=== PATIENT | female | born 1950 | race Caucasian/White ===

== ENCOUNTER 2017-02-04 15:30 | Inpatient (IN) | payer OTHER ==
[~2017-02-04] VITALS: Ht 147.3 cm; Wt 41.4 kg
[~2017-02-04 15:30] MED LIST: BENAZEPRIL HYDR40 M1 PO; CLINDAMYCIN HC300 MG PO; CLONIDINE HYDR0.3 M1 PO; HYDRALAZINE HCL50 MG PO; LABETALOL HCL200 MG PO; LABETALOL HYDR300 MG PO; LEVAQUIN750 MG PO; LOTENSIN40 MG PO; PROCARDIA XL90 MG PO; RENVELA800 M1 PO; SENSIPAR30 M1 PO
[2017-02-04 15:40] VITALS: Ht 147.3 cm; Wt 41.4 kg
[2017-02-04 17:08] LABS: BASOPHIL % 0.4 % (0-2); PLATELET COUNT 189 x10^3mcL (130-400)
[2017-02-04 17:09] LABS: RED CELL DISTRIBUTION WIDTH 18.3 % (11.5-14.5)
[2017-02-04 17:20] LABS: ALBUMIN 3.1 g/dL (3.4-5.0); BILIRUBIN TOTAL 0.5 mg/dL (0.20-1.00); CALCIUM 9.2 mg/dL (8.5-10.1); CARBON DIOXIDE 30.1 mmol/L (21-32); CREATININE SERUM 1.9 mg/dL (0.6-1.0); TOTAL PROTEIN, SERUM 6.8 g/dL (6.4-8.2)
[2017-02-04 17:23] LABS: POTASSIUM SERUM 2.9 mmol/L (3.5-5.1)
[2017-02-04 17:43] VITALS: BP 182/81
[2017-02-04 17:52] LABS: T3 TOTAL 0.78 ng/mL
[2017-02-04 17:56] LABS: MAGNESIUM 2.1 mg/dL (1.8-2.4); PHOSPHOROUS 3.6 mg/dL (2.5-4.9)
[2017-02-04 17:59] LABS: CHOLESTEROL/HDL RATIO 2.6
[2017-02-04 18:07] VITALS: BP 182/81
[2017-02-04 18:08] LABS: T4(THYROXINE) 8.5 ug/dL (4.7-13.3)
[2017-02-04 18:10] LABS: FREE T4 1.25 ng/dL (0.76-1.46); FREE THYROXINE INDEX 3.1 ug/dL (1.4-4.5); T4(THYROXINE) 8.8 ug/dL (4.7-13.3)
[2017-02-04 21:39] VITALS: BP 145/64
[2017-02-04 23:15] VITALS: BP 169/82
[2017-02-05] VITALS (9 sets, daily range): BP systolic 137–231; BP diastolic 38–98
[2017-02-05 07:48] LABS: BASOPHIL % 0.3 % (0-2); PLATELET COUNT 169 x10^3mcL (130-400)
[2017-02-05 07:52] LABS: RED CELL DISTRIBUTION WIDTH 18.6 % (11.5-14.5)
[2017-02-05 08:04] LABS: CALCIUM 10.7 mg/dL (8.5-10.1); CARBON DIOXIDE 27.2 mmol/L (21-32); CREATININE SERUM 3.1 mg/dL (0.6-1.0); MAGNESIUM 2.4 mg/dL (1.8-2.4); PHOSPHOROUS 5.1 mg/dL (2.5-4.9); POTASSIUM SERUM 5.4 mmol/L (3.5-5.1)
[2017-02-05 19:02] LABS: RED BLOOD CELLS 2.5 M/mm3 (4.10-5.10)
[2017-02-05 19:11] LABS: CALCIUM 10.1 mg/dL (8.5-10.1); CARBON DIOXIDE 26.3 mmol/L (21-32)
[2017-02-05 19:15] LABS: CREATININE SERUM 4.2 mg/dL (0.6-1.0)
[2017-02-05 20:47] LABS: IRON 76 ug/dL (50-170)
[2017-02-05 20:50] LABS: TOTAL IRON BINDING CAPACITY 202 ug/dL (250-450)
[2017-02-06 05:42] VITALS: BP 132/57
[2017-02-06 07:22] LABS: BASOPHIL % 0.7 % (0-2); PLATELET COUNT 164 x10^3mcL (130-400)
[2017-02-06 07:56] LABS: CALCIUM 9.9 mg/dL (8.5-10.1); CARBON DIOXIDE 24.4 mmol/L (21-32); MAGNESIUM 2.5 mg/dL (1.8-2.4); PHOSPHOROUS 5.9 mg/dL (2.5-4.9); POTASSIUM SERUM 4.9 mmol/L (3.5-5.1)
[2017-02-06 08:26] LABS: CREATININE SERUM 5.2 mg/dL (0.6-1.0)
[2017-02-06 09:37] VITALS: BP 199/94
[2017-02-06 14:30] VITALS: BP 139/70; BP 187/89
[2017-02-06 16:36] VITALS: BP 134/63
[2017-02-06 20:55] VITALS: BP 106/41
[2017-02-06 21:44] VITALS: BP 122/55
[2017-02-07 05:48] VITALS: BP 148/73
[2017-02-07 08:20] VITALS: BP 177/46
[2017-02-07 10:12] VITALS: BP 177/46
== END 2017-02-07 11:58 | disposition home or self-care (01) | DRG 291 ==
LOC: ED 15:30 → DU 16:24
PROVIDERS: Emergency Medicine; Family Medicine
DX: I13.2 Hypertensive heart and chronic kidney disease with heart failure and with stage 5 chronic kidney disease, or end stage renal disease (principal); N18.6 End stage renal disease; I50.43 Acute on chronic combined systolic (congestive) and diastolic (congestive) heart failure; N17.0 Acute kidney failure with tubular necrosis; J96.00 Acute respiratory failure, unspecified whether with hypoxia or hypercapnia; I69.354 Hemiplegia and hemiparesis following cerebral infarction affecting left non-dominant side; Z68.1 Body mass index [BMI] 19.9 or less, adult; E44.0 Moderate protein-calorie malnutrition; J44.9 Chronic obstructive pulmonary disease, unspecified; E87.5 Hyperkalemia; D63.1 Anemia in chronic kidney disease; Z99.2 Dependence on renal dialysis
CPT/HCPCS: 36600; 83880; 84439; 87804; 94150; A4719; J0360; J1644; J3480; J7030; J7620

== ENCOUNTER 2017-03-19 04:28 | Inpatient (IN) | payer OTHER ==
[~2017-03-19] VITALS: Ht 147.3 cm; Wt 33.3 kg
[2017-03-19] MEDS ORDERED: RENVELA800 M1 PO (06:24)
[2017-03-19 06:30] LABS: BASOPHIL % 0.2 % (0-2); PLATELET COUNT 136 x10^3mcL (130-400)
[2017-03-19 07:12] LABS: CREATININE SERUM 2.9 mg/dL (0.6-1.0); POTASSIUM SERUM 3.7 mmol/L (3.5-5.1)
[2017-03-19 07:29] LABS: ALBUMIN 2.9 g/dL (3.4-5.0); BILIRUBIN TOTAL 0.59 mg/dL (0.20-1.00); CALCIUM 10.1 mg/dL (8.5-10.1); TOTAL PROTEIN, SERUM 6.3 g/dL (6.4-8.2)
[2017-03-19 08:15] VITALS: BP 140/59
[2017-03-19 09:34] VITALS: BP 140/59
[2017-03-19 10:50] LABS: CHOLESTEROL/HDL RATIO 2.2
[2017-03-19 11:00] LABS: T3 TOTAL 1.05 ng/mL
[2017-03-19 11:07] LABS: FREE T4 1.12 ng/dL (0.76-1.46); FREE THYROXINE INDEX 3.1 ug/dL (1.4-4.5); T4(THYROXINE) 8.5 ug/dL (4.7-13.3)
[2017-03-19 13:30] VITALS: BP 147/70
== END 2017-03-19 14:46 | disposition home or self-care (01) | DRG 205 ==
LOC: ED 04:28 → DU 06:04
PROVIDERS: Emergency Medicine; Family Medicine
DX: M94.0 Chondrocostal junction syndrome [Tietze] (principal); I50.43 Acute on chronic combined systolic (congestive) and diastolic (congestive) heart failure; E43 Unspecified severe protein-calorie malnutrition; N18.6 End stage renal disease; I13.2 Hypertensive heart and chronic kidney disease with heart failure and with stage 5 chronic kidney disease, or end stage renal disease; Z68.1 Body mass index [BMI] 19.9 or less, adult; I16.0 Hypertensive urgency; E11.22 Type 2 diabetes mellitus with diabetic chronic kidney disease; D63.8 Anemia in other chronic diseases classified elsewhere; Z99.2 Dependence on renal dialysis
CPT/HCPCS: 83880; 84439; Q0092

== ENCOUNTER 2017-03-27 10:49 | Inpatient (IN) | payer OTHER ==
[2017-03-27] VITALS (8 sets, daily range): BP systolic 103–223; BP diastolic 47–105
[~2017-03-27] VITALS: Ht 147.3 cm; Wt 44.6 kg
[2017-03-27 11:31] LABS: BASOPHIL % 1.1 % (0-2); PLATELET COUNT 150 x10^3mcL (130-400)
[2017-03-27 11:35] LABS: RED CELL DISTRIBUTION WIDTH 18.4 % (11.5-14.5)
[2017-03-27 11:46] LABS: ALBUMIN 3.4 g/dL (3.4-5.0); BILIRUBIN TOTAL 0.7 mg/dL (0.20-1.00); CALCIUM 9.7 mg/dL (8.5-10.1); CARBON DIOXIDE 25.8 mmol/L (21-32); TOTAL PROTEIN, SERUM 7.2 g/dL (6.4-8.2)
[2017-03-27 11:47] LABS: CK-MB 1.9 ng/mL (0-3.6)
[2017-03-27 11:52] LABS: CREATININE SERUM 6.7 mg/dL (0.6-1.0); POTASSIUM SERUM 5.9 mmol/L (3.5-5.1)
[2017-03-27] MEDS ORDERED: SPIRIVA18 MC1 INH (12:13)
[2017-03-27] MEDS ORDERED: PROAIR HFA8.5 GM (12:14)
[2017-03-27 13:57] LABS: MAGNESIUM 2.4 mg/dL (1.8-2.4); PHOSPHOROUS 5.7 mg/dL (2.5-4.9)
[2017-03-27 14:01] LABS: CHOLESTEROL/HDL RATIO 2.4
[2017-03-27 14:07] LABS: FREE T4 1.24 ng/dL (0.76-1.46); FREE THYROXINE INDEX 3.2 ug/dL (1.4-4.5); T3 TOTAL 1.04 ng/mL; T4(THYROXINE) 8.9 ug/dL (4.7-13.3)
[2017-03-27 20:39] LABS: CALCIUM 9.5 mg/dL (8.5-10.1); CREATININE SERUM 2.5 mg/dL (0.6-1.0)
[2017-03-27 20:51] LABS: POTASSIUM SERUM 2.4 mmol/L (3.5-5.1)
[2017-03-28 04:31] VITALS: BP 130/40
[2017-03-28 09:17] LABS: BASOPHIL % 0.2 % (0-2); PLATELET COUNT 142 x10^3mcL (130-400)
[2017-03-28 09:33] LABS: RED CELL DISTRIBUTION WIDTH 18.3 % (11.5-14.5)
[2017-03-28 09:39] LABS: CALCIUM 10.2 mg/dL (8.5-10.1); CARBON DIOXIDE 27.3 mmol/L (21-32); MAGNESIUM 1.9 mg/dL (1.8-2.4); PHOSPHOROUS 5.5 mg/dL (2.5-4.9); POTASSIUM SERUM 4.3 mmol/L (3.5-5.1)
[2017-03-28 09:50] VITALS: BP 159/33
[2017-03-28 11:42] VITALS: BP 145/59
[2017-03-28 14:30] VITALS: BP 167/76
[2017-03-28 16:35] LABS: CALCIUM 9.3 mg/dL (8.5-10.1); POTASSIUM SERUM 5.3 mmol/L (3.5-5.1)
[2017-03-28 16:39] LABS: CREATININE SERUM 4.9 mg/dL (0.6-1.0)
[2017-03-28 18:05] VITALS: BP 103/37
[2017-03-28 20:06] VITALS: Ht 147.3 cm; Wt 44.6 kg
[2017-03-28 21:34] VITALS: BP 136/49
[2017-03-29 04:09] VITALS: BP 194/53
[2017-03-29 05:13] VITALS: BP 195/62
[2017-03-29 06:11] VITALS: BP 148/49
[2017-03-29 06:21] LABS: PLATELET COUNT 131 x10^3mcL (130-400)
[2017-03-29 06:41] LABS: CALCIUM 9.2 mg/dL (8.5-10.1); CARBON DIOXIDE 24.6 mmol/L (21-32); PHOSPHOROUS 7.3 mg/dL (2.5-4.9); POTASSIUM SERUM 4.7 mmol/L (3.5-5.1)
[2017-03-29 06:44] LABS: CREATININE SERUM 5.9 mg/dL (0.6-1.0)
[2017-03-29 06:51] LABS: BASOPHIL % 0 % (0-2); RED CELL DISTRIBUTION WIDTH 18.1 % (11.5-14.5)
[2017-03-29 08:58] VITALS: BP 150/82
[2017-03-29] MEDS ORDERED: LEVAQUIN750 MG PO (10:08)
[2017-03-29] MEDS ORDERED: LAC PO (10:09)
[2017-03-29] MEDS ORDERED: CLINDAMYCIN HC300 MG PO (10:09)
[2017-03-29 12:38] VITALS: BP 150/82
== END 2017-03-29 13:55 | disposition home or self-care (01) | DRG 177 ==
LOC: ED 10:49 → DU 12:50
PROVIDERS: Emergency Medicine; Family Medicine; Family Medicine Sports Medicine; Internal Medicine Nephrology
DX: J69.0 Pneumonitis due to inhalation of food and vomit (principal); J96.00 Acute respiratory failure, unspecified whether with hypoxia or hypercapnia; I50.43 Acute on chronic combined systolic (congestive) and diastolic (congestive) heart failure; N18.6 End stage renal disease; N17.0 Acute kidney failure with tubular necrosis; I13.2 Hypertensive heart and chronic kidney disease with heart failure and with stage 5 chronic kidney disease, or end stage renal disease; I35.0 Nonrheumatic aortic (valve) stenosis; I34.0 Nonrheumatic mitral (valve) insufficiency; E83.39 Other disorders of phosphorus metabolism; Z99.2 Dependence on renal dialysis
CPT/HCPCS: 36600; 83880; 84439; J1956; J3480; J3490; J7030; J7040; J7613; J7620; J7644; Q0092

== ENCOUNTER 2017-11-12 14:59 | Emergency (ER) | payer OTHER ==
[~2017-11-12 14:59] MED LIST changes: +LAC PO; +PROAIR HFA8.5 GM; +SPIRIVA18 MC1 INH
[2017-11-12 15:03] VITALS: Ht 144.8 cm
[2017-11-12 15:42] VITALS: BP 124/95
== END 2017-11-12 15:42 | disposition home or self-care (01) ==
LOC: ED 14:59
DX: L97.929 Non-pressure chronic ulcer of unspecified part of left lower leg with unspecified severity (principal); M79.605 Pain in left leg; I12.9 Hypertensive chronic kidney disease with stage 1 through stage 4 chronic kidney disease, or unspecified chronic kidney disease; J44.9 Chronic obstructive pulmonary disease, unspecified; N18.9 Chronic kidney disease, unspecified; Z88.0 Allergy status to penicillin; Z88.5 Allergy status to narcotic agent; Z88.6 Allergy status to analgesic agent; Z88.8 Allergy status to other drugs, medicaments and biological substances; Z98.890 Other specified postprocedural states

== ENCOUNTER 2018-01-01 19:22 | Inpatient (IN) | payer OTHER ==
[~2018-01-01] VITALS: Ht 144.8 cm; Wt 38.0 kg
[2018-01-01 19:34] VITALS: Ht 144.8 cm; Wt 38.0 kg
[2018-01-01 20:19] LABS: BASOPHIL % 0.3 % (0-2); PLATELET COUNT 185 x10^3mcL (130-400)
[2018-01-01 20:22] LABS: RED CELL DISTRIBUTION WIDTH 17.6 % (11.5-14.5)
[2018-01-01 20:29] LABS: CALCIUM 9.6 mg/dL (8.5-10.1); CARBON DIOXIDE 35.8 mmol/L (21-32); CREATININE SERUM 2.7 mg/dL (0.6-1.0); POTASSIUM SERUM 3.3 mmol/L (3.5-5.1)
[2018-01-01 20:34] LABS: BILIRUBIN TOTAL 0.54 mg/dL (0.20-1.00); TOTAL PROTEIN, SERUM 7.3 g/dL (6.4-8.2)
[2018-01-01 20:37] LABS: ALBUMIN 2.9 g/dL (3.4-5.0)
[2018-01-01] MEDS ORDERED: CLONIDINE HYDR0.3 M1 PO (21:41)
[2018-01-01] MEDS ORDERED: NIFEDIPINE30 MG PO (21:41)
[2018-01-01] MEDS ORDERED: NIFEDIPINE ER90 M2 PO (21:42)
[2018-01-01] MEDS ORDERED: HYDRALAZINE HCL25 MG PO (21:43)
[2018-01-01 23:07] LABS: CHOLESTEROL/HDL RATIO 2.7; MAGNESIUM 2.2 mg/dL (1.8-2.4); PHOSPHOROUS 4.8 mg/dL (2.5-4.9)
[2018-01-01 23:42] VITALS: BP 114/71
[2018-01-02 03:46] LABS: BASOPHIL % 0.4 % (0-2); PLATELET COUNT 197 x10^3mcL (130-400)
[2018-01-02 03:51] LABS: RED CELL DISTRIBUTION WIDTH 18.1 % (11.5-14.5)
[2018-01-02 03:58] LABS: CALCIUM 9.5 mg/dL (8.5-10.1); CREATININE SERUM 3.2 mg/dL (0.6-1.0); MAGNESIUM 2.2 mg/dL (1.8-2.4); PHOSPHOROUS 5.4 mg/dL (2.5-4.9); POTASSIUM SERUM 3.6 mmol/L (3.5-5.1)
[2018-01-02 05:31] VITALS: BP 125/76
[2018-01-02 08:28] VITALS: BP 125/82
[2018-01-02 12:32] VITALS: BP 149/88
[2018-01-02 17:08] VITALS: BP 126/76
[2018-01-02 20:57] VITALS: BP 134/86
[2018-01-03] VITALS (10 sets, daily range): BP systolic 106–235; BP diastolic 68–170
[2018-01-03 04:04] LABS: BASOPHIL % 0.3 % (0-2); PLATELET COUNT 247 x10^3mcL (130-400)
[2018-01-03 04:05] LABS: RED CELL DISTRIBUTION WIDTH 18.3 % (11.5-14.5)
[2018-01-03 04:15] LABS: CALCIUM 9.8 mg/dL (8.5-10.1); PHOSPHOROUS 6.9 mg/dL (2.5-4.9); POTASSIUM SERUM 4.2 mmol/L (3.5-5.1)
[2018-01-03 04:16] LABS: CREATININE SERUM 5.1 mg/dL (0.6-1.0)
[2018-01-04 05:12] VITALS: BP 104/68
[2018-01-04 06:17] LABS: BASOPHIL % 0.2 % (0-2); PLATELET COUNT 191 x10^3mcL (130-400)
[2018-01-04 06:40] LABS: CALCIUM 9.7 mg/dL (8.5-10.1); CARBON DIOXIDE 29.9 mmol/L (21-32); MAGNESIUM 2.4 mg/dL (1.8-2.4); PHOSPHOROUS 6.5 mg/dL (2.5-4.9); POTASSIUM SERUM 4.3 mmol/L (3.5-5.1)
[2018-01-04 06:45] LABS: CREATININE SERUM 6.9 mg/dL (0.6-1.0)
[2018-01-04 07:18] LABS: RED CELL DISTRIBUTION WIDTH 17.7 % (11.5-14.5)
[2018-01-04 08:10] VITALS: BP 115/78
[2018-01-04 11:45] VITALS: BP 130/76
[2018-01-04 16:05] VITALS: BP 134/84
[2018-01-04 21:29] VITALS: BP 146/79
[2018-01-05 05:14] VITALS: BP 125/62
[2018-01-05 08:46] LABS: BASOPHIL % 0.1 % (0-2); PLATELET COUNT 178 x10^3mcL (130-400)
[2018-01-05 08:48] LABS: RED CELL DISTRIBUTION WIDTH 17.3 % (11.5-14.5)
[2018-01-05 08:53] LABS: CALCIUM 10.2 mg/dL (8.5-10.1); CARBON DIOXIDE 28.4 mmol/L (21-32); MAGNESIUM 2.1 mg/dL (1.8-2.4); PHOSPHOROUS 5.8 mg/dL (2.5-4.9); POTASSIUM SERUM 3.8 mmol/L (3.5-5.1)
[2018-01-05 08:57] LABS: CREATININE SERUM 4.6 mg/dL (0.6-1.0)
[2018-01-05 16:06] VITALS: BP 153/106
[2018-01-05 17:19] VITALS: BP 158/95
[2018-01-05 22:51] VITALS: BP 151/100
[2018-01-06 05:24] VITALS: BP 123/56
[2018-01-06 06:50] LABS: BASOPHIL % 0.5 % (0-2); PLATELET COUNT 175 x10^3mcL (130-400)
[2018-01-06 06:55] LABS: RED CELL DISTRIBUTION WIDTH 17.1 % (11.5-14.5)
[2018-01-06 07:19] LABS: CALCIUM 9.9 mg/dL (8.5-10.1); CARBON DIOXIDE 29.9 mmol/L (21-32); POTASSIUM SERUM 4.9 mmol/L (3.5-5.1)
[2018-01-06 07:26] LABS: CREATININE SERUM 6.5 mg/dL (0.6-1.0)
[2018-01-06 08:45] VITALS: BP 126/72
[2018-01-06 10:11] VITALS: BP 126/72
[2018-01-06 13:45] VITALS: BP 157/70
[2018-01-06 17:00] VITALS: BP 138/95
[2018-01-06 21:18] VITALS: BP 125/60
[2018-01-07 05:32] VITALS: BP 154/86
[2018-01-07 07:04] VITALS: BP 139/99
[2018-01-07 08:24] VITALS: BP 146/93
[2018-01-07] MEDS ORDERED: HYDRALAZINE HCL25 MG PO (13:11)
[2018-01-07] MEDS ORDERED: CAT0.1 PO (13:12)
[2018-01-07 14:00] VITALS: BP 143/80
[2018-01-07 14:12] VITALS: BP 146/93
== END 2018-01-07 17:56 | disposition left against medical advice (07) | DRG 280 ==
LOC: ED 19:22 → DU 22:18 → ED 22:58 → DU 23:07
PROVIDERS: Emergency Medicine; Family Medicine; General Practice
DX: I21.A1 Myocardial infarction type 2 (principal); N17.0 Acute kidney failure with tubular necrosis; N18.6 End stage renal disease; I50.43 Acute on chronic combined systolic (congestive) and diastolic (congestive) heart failure; J96.21 Acute and chronic respiratory failure with hypoxia; E43 Unspecified severe protein-calorie malnutrition; I13.2 Hypertensive heart and chronic kidney disease with heart failure and with stage 5 chronic kidney disease, or end stage renal disease; E87.1 Hypo-osmolality and hyponatremia; L97.929 Non-pressure chronic ulcer of unspecified part of left lower leg with unspecified severity; L97.919 Non-pressure chronic ulcer of unspecified part of right lower leg with unspecified severity; Z68.1 Body mass index [BMI] 19.9 or less, adult; E87.6 Hypokalemia; E83.39 Other disorders of phosphorus metabolism; I25.10 Atherosclerotic heart disease of native coronary artery without angina pectoris; J44.9 Chronic obstructive pulmonary disease, unspecified; D53.9 Nutritional anemia, unspecified; Z99.2 Dependence on renal dialysis; Z99.81 Dependence on supplemental oxygen
CPT/HCPCS: 36600; 82962; 83880; A9500; J0360; J1644; J1940; J2270; J2405; J2785; J7030; J7620; Q0092; Q0163

== ENCOUNTER 2018-01-18 21:53 | Inpatient (IN) | payer OTHER ==
[~2018-01-18] VITALS: Ht 144.8 cm; Wt 36.3 kg
[~2018-01-18 21:53] MED LIST changes: +CAT0.1 PO; +HYDRALAZINE HCL25 MG PO; +NIFEDIPINE ER90 M2 PO; +NIFEDIPINE30 MG PO
[2018-01-18 22:30] LABS: PLATELET COUNT 261 x10^3mcL (130-400)
[2018-01-18 22:32] LABS: BASOPHIL % 0 % (0-2); RED CELL DISTRIBUTION WIDTH 16.6 % (11.5-14.5)
[2018-01-18 22:53] LABS: CALCIUM 10.3 mg/dL (8.5-10.1); CARBON DIOXIDE 35.1 mmol/L (21-32); CREATININE SERUM 2.7 mg/dL (0.6-1.0); POTASSIUM SERUM 4.2 mmol/L (3.5-5.1)
[2018-01-18 22:58] LABS: ALBUMIN 3.4 g/dL (3.4-5.0); BILIRUBIN TOTAL 0.7 mg/dL (0.20-1.00)
[2018-01-18 23:04] LABS: TOTAL PROTEIN, SERUM 8.3 g/dL (6.4-8.2)
[2018-01-18 23:10] LABS: CK-MB 0.7 ng/mL (0-3.6)
[2018-01-19] VITALS (7 sets, daily range): BP systolic 95–148; BP diastolic 51–97
[2018-01-19] MEDS ORDERED: HYDRALAZINE10 MG PO (00:17)
[2018-01-19] MEDS ORDERED: CLONIDINE HYDR0.3 M1 PO (00:17)
[2018-01-19] MEDS ORDERED: NIFEDIPINE20 MG PO (00:18)
[2018-01-19 00:43] LABS: MAGNESIUM 1.9 mg/dL (1.8-2.4); PHOSPHOROUS 4.2 mg/dL (2.5-4.9)
[2018-01-19 06:52] LABS: PLATELET COUNT 208 x10^3mcL (130-400)
[2018-01-19 06:54] LABS: BASOPHIL % 0 % (0-2); RED CELL DISTRIBUTION WIDTH 17.4 % (11.5-14.5)
[2018-01-19 07:12] LABS: CARBON DIOXIDE 33.3 mmol/L (21-32); CREATININE SERUM 3.2 mg/dL (0.6-1.0); POTASSIUM SERUM 4.5 mmol/L (3.5-5.1)
[2018-01-20] VITALS (7 sets, daily range): BP systolic 100–147; BP diastolic 45–92
[2018-01-20 12:36] LABS: BASOPHIL % 0.7 % (0-2); PLATELET COUNT 222 x10^3mcL (130-400)
[2018-01-20 12:48] LABS: RED CELL DISTRIBUTION WIDTH 17.2 % (11.5-14.5)
[2018-01-20 13:59] LABS: CALCIUM 9.3 mg/dL (8.5-10.1); CARBON DIOXIDE 30.2 mmol/L (21-32); CREATININE SERUM 2.9 mg/dL (0.6-1.0); MAGNESIUM 1.7 mg/dL (1.8-2.4); PHOSPHOROUS 3.2 mg/dL (2.5-4.9); POTASSIUM SERUM 3.5 mmol/L (3.5-5.1)
[2018-01-20 14:24] LABS: IRON 67 ug/dL (50-170)
[2018-01-20 14:28] LABS: TOTAL IRON BINDING CAPACITY 159 ug/dL (250-450)
[2018-01-21 04:49] VITALS: BP 121/51
[2018-01-21 09:48] VITALS: BP 108/49
[2018-01-21 11:37] VITALS: BP 108/49
[2018-01-21 11:40] VITALS: BP 108/49
[2018-01-21 13:46] VITALS: BP 148/64
== END 2018-01-21 14:15 | disposition home or self-care (01) | DRG 280 ==
LOC: ED 21:53 → DU 23:48
PROVIDERS: Emergency Medicine; Family Medicine; General Practice; Internal Medicine Nephrology
DX: I21.A1 Myocardial infarction type 2 (principal); I50.43 Acute on chronic combined systolic (congestive) and diastolic (congestive) heart failure; J96.01 Acute respiratory failure with hypoxia; J18.9 Pneumonia, unspecified organism; N18.6 End stage renal disease; N17.0 Acute kidney failure with tubular necrosis; I13.2 Hypertensive heart and chronic kidney disease with heart failure and with stage 5 chronic kidney disease, or end stage renal disease; L97.821 Non-pressure chronic ulcer of other part of left lower leg limited to breakdown of skin; L97.811 Non-pressure chronic ulcer of other part of right lower leg limited to breakdown of skin; Z68.1 Body mass index [BMI] 19.9 or less, adult; R64 Cachexia; J44.9 Chronic obstructive pulmonary disease, unspecified; I27.20 Pulmonary hypertension, unspecified; I25.10 Atherosclerotic heart disease of native coronary artery without angina pectoris; I08.1 Rheumatic disorders of both mitral and tricuspid valves; Z91.11 Patient's noncompliance with dietary regimen; Z99.2 Dependence on renal dialysis
CPT/HCPCS: 36600; 83880; 87804; 94150; J1956; J2920; J3490; J7030; J7040; J7620; Q0092; Q0163

== ENCOUNTER 2018-02-14 22:07 | Inpatient (IN) | payer OTHER ==
[~2018-02-14] VITALS: Ht 144.8 cm; Wt 37.6 kg
[~2018-02-14 22:07] MED LIST changes: +HYDRALAZINE10 MG PO; +NIFEDIPINE20 MG PO
[2018-02-14 22:40] LABS: BASOPHIL % 0.1 % (0-2); PLATELET COUNT 274 x10^3mcL (130-400)
[2018-02-14 22:45] LABS: RED CELL DISTRIBUTION WIDTH 17.1 % (11.5-14.5)
[2018-02-14 22:54] LABS: BILIRUBIN TOTAL 0.43 mg/dL (0.20-1.00); CALCIUM 9.6 mg/dL (8.5-10.1); CARBON DIOXIDE 26.8 mmol/L (21-32); TOTAL PROTEIN, SERUM 7.9 g/dL (6.4-8.2)
[2018-02-14 23:11] LABS: POTASSIUM SERUM 6.3 mmol/L (3.5-5.1)
[2018-02-14 23:12] LABS: CREATININE SERUM 8.3 mg/dL (0.6-1.0)
[2018-02-15] VITALS (10 sets, daily range): BP systolic 116–193; BP diastolic 75–142
[2018-02-15] MEDS ORDERED: HYDRALAZINE HY100 MG PO (00:24)
[2018-02-15] MEDS ORDERED: COREG CR40 M1 PO (00:24)
[2018-02-15] MEDS ORDERED: PRO30 PO (00:24)
[2018-02-15 01:31] LABS: MAGNESIUM 1.8 mg/dL (1.8-2.4); PHOSPHOROUS 4.4 mg/dL (2.5-4.9)
[2018-02-15 01:35] LABS: CHOLESTEROL/HDL RATIO 3.5
[2018-02-15 07:36] LABS: BASOPHIL % 0.3 % (0-2); PLATELET COUNT 279 x10^3mcL (130-400)
[2018-02-15 07:37] LABS: CALCIUM 9.7 mg/dL (8.5-10.1); CARBON DIOXIDE 25.9 mmol/L (21-32)
[2018-02-15 07:47] LABS: POTASSIUM SERUM 5.9 mmol/L (3.5-5.1)
[2018-02-15 07:48] LABS: CREATININE SERUM 8.7 mg/dL (0.6-1.0)
[2018-02-15 07:49] LABS: RED CELL DISTRIBUTION WIDTH 16.8 % (11.5-14.5)
[2018-02-16 06:02] VITALS: BP 133/76
[2018-02-16 06:50] LABS: CALCIUM 9.7 mg/dL (8.5-10.1); MAGNESIUM 2.2 mg/dL (1.8-2.4); PHOSPHOROUS 8.3 mg/dL (2.5-4.9); POTASSIUM SERUM 4.8 mmol/L (3.5-5.1)
[2018-02-16 07:22] LABS: CREATININE SERUM 5.9 mg/dL (0.6-1.0)
[2018-02-16 07:27] LABS: BASOPHIL % 0.4 % (0-2); PLATELET COUNT 269 x10^3mcL (130-400); RED CELL DISTRIBUTION WIDTH 16.9 % (11.5-14.5)
[2018-02-16 09:59] VITALS: BP 109/82
[2018-02-16 13:49] VITALS: BP 115/54
[2018-02-16 17:05] VITALS: BP 108/85
[2018-02-16 19:30] VITALS: BP 109/74
[2018-02-17 05:32] VITALS: BP 93/63
[2018-02-17 09:29] LABS: CALCIUM 9.2 mg/dL (8.5-10.1); CARBON DIOXIDE 31.4 mmol/L (21-32); PHOSPHOROUS 7.9 mg/dL (2.5-4.9); POTASSIUM SERUM 5.5 mmol/L (3.5-5.1)
[2018-02-17 09:32] LABS: CREATININE SERUM 6.9 mg/dL (0.6-1.0)
[2018-02-17 09:33] LABS: BASOPHIL % 0.2 % (0-2); PLATELET COUNT 223 x10^3mcL (130-400); RED CELL DISTRIBUTION WIDTH 16.7 % (11.5-14.5)
[2018-02-17 09:45] VITALS: BP 114/74
[2018-02-17 12:33] VITALS: BP 131/59
[2018-02-17 17:00] VITALS: BP 109/66
[2018-02-17 21:12] VITALS: BP 122/82
[2018-02-18 05:38] VITALS: BP 111/78
[2018-02-18 09:27] VITALS: BP 118/62
[2018-02-18] MEDS ORDERED: KEFLEX500 M1 PO (11:48)
[2018-02-18 14:00] VITALS: BP 123/63
[2018-02-18 17:09] VITALS: BP 119/70
[2018-02-18 21:30] VITALS: BP 114/82
[2018-02-19 06:09] VITALS: BP 141/98
[2018-02-19 08:52] VITALS: BP 118/81
[2018-02-19 12:00] VITALS: BP 119/89
[2018-02-19 12:18] VITALS: BP 110/65; BP 118/81
[2018-02-19 16:10] VITALS: BP 110/65
[2018-02-19 19:42] VITALS: BP 137/77
[2018-02-19] MEDS ORDERED: LEVOFLOXACIN500 M1 PO (20:11)
== END 2018-02-19 20:35 | disposition home or self-care (01) | DRG 682 ==
LOC: ED 22:07 → DU 02-15 00:10
PROVIDERS: Emergency Medicine; Internal Medicine; ADMIT Family Medicine
DX: I12.0 Hypertensive chronic kidney disease with stage 5 chronic kidney disease or end stage renal disease (principal); J96.00 Acute respiratory failure, unspecified whether with hypoxia or hypercapnia; N18.6 End stage renal disease; N17.0 Acute kidney failure with tubular necrosis; L03.116 Cellulitis of left lower limb; L03.115 Cellulitis of right lower limb; I16.0 Hypertensive urgency; E87.70 Fluid overload, unspecified; E83.39 Other disorders of phosphorus metabolism; E87.5 Hyperkalemia; D53.9 Nutritional anemia, unspecified; D63.1 Anemia in chronic kidney disease; J44.9 Chronic obstructive pulmonary disease, unspecified; Z99.2 Dependence on renal dialysis; Z91.15 Patient's noncompliance with renal dialysis
CPT/HCPCS: 83880; 94150; J0360; J0610; J0885-EC; J1644; J1815; J2405; J3490; J7030; J7613; J7620; Q0092; Q0163

== ENCOUNTER 2018-02-21 10:43 | Inpatient (IN) | payer OTHER ==
[~2018-02-21] VITALS: Ht 144.8 cm; Wt 37.2 kg
[~2018-02-21 10:43] MED LIST changes: +COREG CR40 M1 PO; +HYDRALAZINE HY100 MG PO; +KEFLEX500 M1 PO; +LEVOFLOXACIN500 M1 PO; +PRO30 PO
[2018-02-21 10:50] VITALS: Ht 144.8 cm; Wt 37.2 kg
[2018-02-21 11:13] LABS: BASOPHIL % 0.4 % (0-2); PLATELET COUNT 246 x10^3mcL (130-400)
[2018-02-21 11:26] LABS: BILIRUBIN TOTAL 0.4 mg/dL (0.20-1.00); CALCIUM 9.4 mg/dL (8.5-10.1); CARBON DIOXIDE 26.3 mmol/L (21-32); POTASSIUM SERUM 4.7 mmol/L (3.5-5.1); TOTAL PROTEIN, SERUM 8.2 g/dL (6.4-8.2)
[2018-02-21 11:29] LABS: ALBUMIN 3.2 g/dL (3.4-5.0); CREATININE SERUM 5.9 mg/dL (0.6-1.0)
[2018-02-21 11:36] LABS: RED CELL DISTRIBUTION WIDTH 16.3 % (11.5-14.5)
[2018-02-21] MEDS ORDERED: UNK BP MED (12:02)
[2018-02-21 13:20] VITALS: BP 126/95
[2018-02-21 15:05] VITALS: BP 107/90
[2018-02-21 15:38] VITALS: BP 107/90
[2018-02-21 18:29] VITALS: BP 156/94
[2018-02-21 20:05] VITALS: BP 154/89
[2018-02-22 04:09] LABS: BASOPHIL % 0.2 % (0-2); PLATELET COUNT 208 x10^3mcL (130-400)
[2018-02-22 04:10] LABS: RED CELL DISTRIBUTION WIDTH 15.5 % (11.5-14.5)
[2018-02-22 04:28] LABS: rbc morphology (normal/abnorm) ABNORMAL (NORMAL)
[2018-02-22 04:54] VITALS: BP 119/63
[2018-02-22 05:27] LABS: CALCIUM 9.2 mg/dL (8.5-10.1); POTASSIUM SERUM 4.6 mmol/L (3.5-5.1)
[2018-02-22 08:00] VITALS: BP 133/75
== END 2018-02-22 17:17 | disposition left against medical advice (07) | DRG 193 ==
LOC: ED 10:43 → DU 12:11
PROVIDERS: Emergency Medicine; ADMIT Internal Medicine
PROC: 30233N1 Transfusion of Nonautologous Red Blood Cells into Peripheral Vein, Percutaneous Approach (ICD-10-PCS; principal; 2018-02-22)
DX: J18.9 Pneumonia, unspecified organism (principal); N18.6 End stage renal disease; J44.1 Chronic obstructive pulmonary disease with (acute) exacerbation; I12.0 Hypertensive chronic kidney disease with stage 5 chronic kidney disease or end stage renal disease; Z68.1 Body mass index [BMI] 19.9 or less, adult; D63.1 Anemia in chronic kidney disease; G89.4 Chronic pain syndrome; Z99.2 Dependence on renal dialysis; Z87.891 Personal history of nicotine dependence
CPT/HCPCS: 82962; 83880; J0456; J1644; J2060; J7030; J7050; J7613; J7620; J7644; P9016; Q0092; Q0163